=== PATIENT | male | born 1980 | race Caucasian/White ===

== ENCOUNTER → 2018-04-23 | Outpatient (CLI) | payer SELFPAY ==
--- NOTE | 2018-04-23 13:36 | REP ---
Clinical: Scrotal swelling without pain. Technique: Stewart scale and color Doppler evaluation using linear and curved array transducer with color Doppler evaluation. Findings: The testicles and epididymi are relatively normal in contour, size, echogenicity, vascularity and overall appearance. Few left intratesticular calcifications are identified and otherwise nonspecific. There is no evidence for intratesticular mass lesion, infectious/inflammatory process, with torsion. No varicoceles. Small incidental left hydrocele is nonspecific. Right testicle measures 4.1 x 2.2 x 2.7 cm. Left testicle measures 4.2 x 1.9 x 2.4 cm. Impression: Essentially normal scrotal ultrasound. Electronically Signed by Warren Haines MD 04/23/2018 01:27 P
== END ==
LOC: M RAD 13:30
PROVIDERS: ATTEND Physician Assistant
DX: N50.89 Other specified disorders of the male genital organs (principal)

== ENCOUNTER 2023-10-29 03:55 | Emergency (ER) | payer OTHER, SELFPAY ==
[~2023-10-29] VITALS: Ht 167.6 cm; Wt 61.8 kg
[2023-10-29] MEDS: NS 1,000 ML IV ONE (06:28)
[2023-10-29] MEDS: ONDANSETRON 4MG 2ML VIAL IV PRN (06:28)
[2023-10-29 07:00] LABS: BASO % 0.5 % (0.0-1.0); EOS % 0.1 % (0.0-3.0); HEMATOCRIT 46.9 % (42.0-52.0); HEMOGLOBIN 16.2 g/dl (13.5-17.5); LYMPH # 1.6 10^3/uL (1.5-5.0); LYMPH % 20.5 % (24.0-44.0); MEAN CORPUSCULAR HEMOGLOBIN 30.4 pg (27.0-33.0); MEAN CORPUSCULAR HGB CONC 34.5 g/dl (32.0-36.5); MONO # 0.4 10^3/uL (0.0-0.8); MONO % 5.6 % (2.0-8.0); NEUTROPHILS # 5.7 10^3/uL (1.5-8.5); NEUTROPHILS % 72.8 % (36.0-66.0); PLATELET COUNT, AUTOMATED 287 10^3/uL (150-450); RED BLOOD COUNT 5.33 10^6/uL (4.30-6.10); WHITE BLOOD COUNT 7.8 10^3/uL (4.0-10.0)
[2023-10-29 07:21] LABS: LIPASE 46 U/L (12-53)
[2023-10-29 07:23] LABS: ALBUMIN 4.9 G/DL (3.2-5.2); ALKALINE PHOSPHATASE 82 U/L (46-116); ALT/SGPT 16 U/L (7.0-40); AST/SGOT 9 U/L (<34); BILIRUBIN,DIRECT 0.2 MG/DL (<0.4); BILIRUBIN,TOTAL 0.7 MG/DL (0.3-1.2); BLOOD UREA NITROGEN 13 MG/DL (9-23); CARBON DIOXIDE LEVEL 29 MMOL/L (20-31); CHLORIDE LEVEL 103 MMOL/L (98-107); CREATININE FOR GFR 0.75 MG/DL (0.70-1.30); GLOMERULAR FILTRATION RATE > 60.0 (>60); GLUCOSE, FASTING 117 MG/DL (60-100); POTASSIUM SERUM 4.2 MMOL/L (3.5-5.1); SODIUM LEVEL 136 MMOL/L (136-145); TOTAL PROTEIN 7.7 G/DL (5.7-8.2)
[2023-10-29 10:23] VITALS: BP 135/80; TEMP 98.2; O2SAT 99
[2023-10-29] MEDS ORDERED: FLON1SPR NARES (10:24)
[2023-10-29] MEDS ORDERED: CLAR5TAB11 PO (10:24)
[2023-10-29] MEDS ORDERED: ONDA-282 PO (10:30)
== END 2023-10-29 10:37 | disposition home or self-care (01) ==
LOC: M ED 03:55
DX: J06.9 Acute upper respiratory infection, unspecified (principal); R11.2 Nausea with vomiting, unspecified; Z79.899 Other long term (current) drug therapy
CPT/HCPCS: 80053; 81001; 82248; 83690; 85025; 87486; 87581; 87633; 87798; 96374; 99284; J2405

== ENCOUNTER → 2023-12-25 | Outpatient (REF) | payer OTHER ==
[~2023-12-25] MED LIST: CLAR5TAB11 PO; FLON1SPR NARES; ONDA-282 PO
[2023-12-25 17:12] LABS: APPEARANCE, URINE CLEAR (CLEAR); BACTERIA, URINE AUTO NEGATIVE (NEGATIVE); BILIRUBIN, URINE AUTO NEGATIVE (NEGATIVE); BLOOD, URINE BLOOD 1+ (NEGATIVE); COLOR, URINE STRAW (YELLOW); GLUCOSE, URINE (UA) AUTO NEGATIVE (NEGATIVE); KETONE, URINE AUTO NEGATIVE (NEGATIVE); LEUKOCYTE ESTERASE, URINE AUTO NEGATIVE (NEGATIVE); MUCUS, URINE SMALL (NEGATIVE); NITRITE, URINE AUTO NEGATIVE (NEGATIVE); PROTEIN, URINE AUTO NEGATIVE (NEGATIVE); RBC, URINE AUTO 0 /HPF (0-3); SPECIFIC GRAVITY URINE AUTO 1.009 (1.002-1.035); SQUAMOUS EPITHELIAL CELL UR AU 0 /HPF (0-6); UROBILINOGEN, URINE AUTO 0.2 mg/dL (0.0-2.0); WBC, URINE AUTO 0 /HPF (0-3)
[2023-12-25 17:32] LABS: CHOLESTEROL RISK RATIO 3.29 (<5); HDL CHOLESTEROL 54.7 MG/DL (>40); LDL CHOLESTEROL 107.9 MG/DL (<100); NON-HDL-C 125.3 MG/DL; PSA SCREENING 0.72 NG/ML (< 4.00)
[2023-12-25 17:36] LABS: THYROID STIMULATING HORMONE 2.239 uIU/ML (0.55-4.78)
[2023-12-25 17:42] LABS: HEMOGLOBIN A1c 5.2 % (4.0-6.0)
== END ==
LOC: M SFHCCAPE 07:12
PROVIDERS: ATTEND Physician Assistant Medical
DX: Z00.00 Encounter for general adult medical examination without abnormal findings (principal); R39.12 Poor urinary stream; Z13.220 Encounter for screening for lipoid disorders; Z13.1 Encounter for screening for diabetes mellitus